=== PATIENT | male | born 1950 | race Caucasian/White ===

== ENCOUNTER 2017-09-30 16:48 | Inpatient (IN) | payer MEDICARE, OTHER ==
[2017-09-30] MEDS: ONDANSETRON 4 MG INJ IV (21:21)
[2017-09-30] MEDS: SOD CHLORIDE 0.9% 1,000 ML IV ×3 (21:22→23:24)
[2017-09-30] MEDS: ALTEPLASE (CATHFLO) 2 MG INJ CATHETER ×2 (21:48)
[2017-09-30 21:53] LABS: ADD MAN DIFF? NO
[2017-09-30 21:59] LABS: BASOPHILS % 0.3 % (0.0-2.0); EOSINOPHILS % 0.5 % (0.0-7.0); HEMATOCRIT 30.7 % (42.0-52.0); HEMOGLOBIN 10.4 g/dl (14.0-18.0); LYMPHOCYTES # 1.6 10^3/ul (0.8-2.9); LYMPHOCYTES % 21.2 % (15.0-51.0); MEAN CORPUSCULAR HEMOGLOBIN 32.1 pg (29.0-33.0); MEAN CORPUSCULAR HGB CONC 33.9 g/dl (32.0-37.0); MEAN CORPUSCULAR VOLUME 94.8 fl (82.0-101.0); MEAN PLATELET VOLUME 10.6 fl (7.4-10.4); MONOCYTE # 0.5 10^3/ul (0.3-0.9); MONOCYTES % 6.9 % (0.0-11.0); NEUTROPHIL # 5.2 10^3/ul (1.6-7.5); NEUTROPHILS % 70.2 % (39.0-77.0); PLATELET COUNT 411 10^3/UL (140-415); RED BLOOD COUNT 3.24 10^6/ul (4.70-6.10); RED CELL DISTRIBUTION WIDTH 13.1 % (11.5-14.5)
[2017-09-30 21:59] LABS: WHITE BLOOD COUNT 7.4 10^3/ul (4.8-10.8)
[2017-09-30 22:05] LABS: ADD UMIC YES; UR ASCORBIC ACID NEGATIVE (NEGATIVE); UR BILIRUBIN (Dip) NEGATIVE (NEGATIVE); UR BLOOD (Dip) 1+ mg/dL (NEGATIVE); UR CLARITY CLEAR (CLEAR); UR COLOR STRAW (YELLOW); UR GLUCOSE (Dip) 3+ mg/dL (NEGATIVE); UR KETONES (Dip) NEGATIVE (NEGATIVE); UR LEUKOCYTE ESTERASE (Dip) NEGATIVE Leu/ul (NEGATIVE); UR NITRITE (Dip) NEGATIVE (NEGATIVE); UR RBC 0 /HPF (0-5); UR SPECIFIC GRAVITY (Dip) 1.013 (1.003-1.030); UR TOTAL PROTEIN (Dip) 2+ mg/dl (NEGATIVE); UR UROBILINOGEN (Dip) NEGATIVE (NEGATIVE); UR WBC 1 /HPF (0-5)
[2017-09-30 23:13] LABS: INR 1.07; PT RATIO 1.1
[2017-09-30 23:14] LABS: PARTIAL THROMBOPLASTIN TIME 27.5 Sec (25.0-35.0)
[2017-09-30 23:26] LABS: LACTIC ACID 1.2 mmol/L (0.5-2.0)
[2017-10-01 00:06] LABS: ALANINE AMINOTRANSFERASE 27 IU/L (13-69); ALBUMIN 3.5 g/dl (3.3-4.9); ALBUMIN/GLOBULIN RATIO 1.16; ALKALINE PHOSPHATASE 113 IU/L (42-121); ANION GAP 17 (8-16); ASPARTATE AMINO TRANSFERASE 15 IU/L (15-46); BLOOD UREA NITROGEN 79 mg/dl (7-20); CALCIUM 8.2 mg/dl (8.4-10.2); CARBON DIOXIDE 20 mmol/L (21-31); CHLORIDE 93 mmol/L (97-110); CREATININE 7.89 mg/dl (0.61-1.24); LIPASE 283 U/L (23-300); POTASSIUM 4.9 mmol/L (3.5-5.1); SODIUM 125 mmol/L (135-144); TOTAL PROTEIN 6.5 g/dl (6.1-8.1)
[2017-10-01 00:17] LABS: GLUCOSE 707 mg/dl (70-220)
[2017-10-01 00:18] LABS: TROPONIN-I 0.017 ng/ml (0.00-0.12)
[2017-10-01] MEDS ORDERED: DEXTROSE 50% 50 ML IV (01:00)
[2017-10-01] MEDS ORDERED: DEXTROSE 50% 25 ML IV (01:00)
[2017-10-01] MEDS ORDERED: ADJUSTMENT OF INSULIN INFUSION RATE (DKA PROTOCOL) XX (01:00)
[2017-10-01] MEDS: INSULIN HUMAN REGULAR 100 UNIT in SOD CHLORIDE 0.9% 99 ML IV (01:27)
[2017-10-01 01:35] LABS: AADO2 Arterial 27.4 mmHg (7.0-24.0); Allen Test ACCEPTAB; Arterial Base Excess -6.9 mmol/L (-3.0-3); Arterial Blood Gas Oxygen Sat 92.3 mmHG (95.0-98.0); Arterial COHb 0.3 % (0.0-3.0); Arterial Fraction of Oxyhgb 91.9 % (93.0-99.0); Arterial HCO3 19.1 mmol/L (22.0-26.0); Arterial MetHb 0.1 % (0.0-1.5); Arterial Total Hemglobin 10.2 g/dl (12.0-18.0); Arterial pCO2 40.6 mmhg (35-45); MODE ROOM AIR; Site Right Radial
[2017-10-01 02:46] LABS: ANION GAP 17 (8-16); BLOOD UREA NITROGEN 72 mg/dl (7-20); CALCIUM 7.7 mg/dl (8.4-10.2); CARBON DIOXIDE 19 mmol/L (21-31); CHLORIDE 100 mmol/L (97-110); CREATININE 7.19 mg/dl (0.61-1.24); POTASSIUM 3.6 mmol/L (3.5-5.1); SODIUM 132 mmol/L (135-144)
[2017-10-01 02:49] LABS: GLUCOSE 549 mg/dl (70-220)
[2017-10-01] MEDS ORDERED: ONDANSETRON 4 MG INJ IV (03:30)
[2017-10-01] MEDS ORDERED: DOCUSATE SODIUM 100 MG CAP PO (03:30)
[2017-10-01] MEDS ORDERED: BISACODYL (EC) 5 MG TAB PO (03:30)
[2017-10-01] MEDS ORDERED: NITROGLYCERIN (SL) 0.4 MG TAB SL (03:30)
[2017-10-01] MEDS ORDERED: ALBUTEROL HFA 8 GM INHALER INH (04:00)
[2017-10-01] MEDS: DEXTROSE 5% 1,000 ML IV (04:31)
[2017-10-01] MEDS: ALBUTEROL/IPRATROPIUM (NEB) 3 ML AMP NEB ×5 (04:43→21:50)
[2017-10-01] MEDS ORDERED: IPRATROPIUM (NEB) 0.5 MG/2.5 ML AMP NEB (05:00)
[2017-10-01] MEDS ORDERED: GLUCAGON 1 MG INJ IM (05:30)
[2017-10-01] MEDS ORDERED: DEXTROSE 50% 50 ML SYRINGE IV ×2 (05:30)
[2017-10-01] MEDS ORDERED: GLUCOSE GEL 15 GRAM TUBE BUCCAL (05:30)
[2017-10-01] MEDS ORDERED: GLUCOSE GEL 15 GRAM TUBE PO ×2 (05:30)
[2017-10-01] MEDS: PANTOPRAZOLE 40 MG INJ IV (05:30)
[2017-10-01] MEDS: INSULIN ASPART [NOVOLOG] 3 ML PEN SC ×3 (07:48→17:33)
[2017-10-01] MEDS: INSULIN GLARGINE [LANtus] 3 ML PEN SC ×2 (07:48→20:34)
[2017-10-01] MEDS: ACETAMINOPHEN 500 MG TAB PO ×3 (08:41→20:37)
[2017-10-01] MEDS: METOPROLOL 100 MG TAB PO (08:41)
[2017-10-01] MEDS: FERROUS SULFATE (EC) 325 MG TAB PO (08:42)
[2017-10-01] MEDS: FOLIC ACID 1 MG TAB PO (08:42)
[2017-10-01 08:53] LABS: HEMOGLOBIN A1C 12.6 % (0-5.9)
[2017-10-01 08:58] LABS: ANION GAP 19 (8-16); BLOOD UREA NITROGEN 71 mg/dl (7-20); CALCIUM 8.5 mg/dl (8.4-10.2); CARBON DIOXIDE 19 mmol/L (21-31); CHLORIDE 103 mmol/L (97-110); CREATININE 7.42 mg/dl (0.61-1.24); GLUCOSE 171 mg/dl (70-220); POTASSIUM 3.5 mmol/L (3.5-5.1); SODIUM 137 mmol/L (135-144)
[2017-10-01] MEDS ORDERED: METOPROLOL 100 MG TAB PO (13:30)
[2017-10-01] MEDS: AMLODIPINE 5 MG TAB PO (13:46)
[2017-10-01] MEDS: ACETAMINOPHEN 325 MG TAB PO (13:50)
[2017-10-01] MEDS: Insulin NOVOLOG SS MILD Algorithm (SS with meals and bedtime) SC ×2 (17:32→22:23)
[2017-10-01] MEDS ORDERED: SOD CHLORIDE 0.9% 1,000 ML IV (17:56)
[2017-10-01] MEDS ORDERED: SODIUM CHLORIDE 0.9% 1L BAG IV (18:00)
[2017-10-01] MEDS ORDERED: ALBUMIN HUMAN 25% 50 ML IV (18:00)
[2017-10-01] MEDS: AMLODIPINE 10 MG TAB PO (19:41)
[2017-10-01] MEDS ORDERED: INSULIN GLARGINE [LANtus] 3 ML PEN SC (20:00)
[2017-10-01] MEDS: BENZONATATE 100 MG CAP PO (22:07)
[2017-10-02] MEDS: ALBUTEROL/IPRATROPIUM (NEB) 3 ML AMP NEB ×7 (00:19→23:57)
[2017-10-02] MEDS ORDERED: ACCU-CHEK XX ×3 (02:00)
[2017-10-02] MEDS: ACCU-CHEK XX (02:58)
[2017-10-02] MEDS: PANTOPRAZOLE 40 MG INJ IV (06:15)
[2017-10-02] MEDS: BENZONATATE 100 MG CAP PO ×2 (06:15→21:10)
[2017-10-02 07:22] LABS: ADD MAN DIFF? NO; HAAIG REFLEX REFLEX FILED
[2017-10-02 07:24] LABS: WHITE BLOOD COUNT 8.5 10^3/ul (4.8-10.8)
[2017-10-02 07:24] LABS: BASOPHILS % 0.4 % (0.0-2.0); EOSINOPHILS # 0.2 10^3/ul (0.0-0.5); EOSINOPHILS % 2.2 % (0.0-7.0); HEMATOCRIT 28.1 % (42.0-52.0); HEMOGLOBIN 9.6 g/dl (14.0-18.0); LYMPHOCYTES # 1.9 10^3/ul (0.8-2.9); LYMPHOCYTES % 22.7 % (15.0-51.0); MEAN CORPUSCULAR HEMOGLOBIN 32.9 pg (29.0-33.0); MEAN CORPUSCULAR HGB CONC 34.2 g/dl (32.0-37.0); MEAN CORPUSCULAR VOLUME 96.2 fl (82.0-101.0); MEAN PLATELET VOLUME 9.9 fl (7.4-10.4); MONOCYTE # 0.5 10^3/ul (0.3-0.9); MONOCYTES % 6.3 % (0.0-11.0); NEUTROPHIL # 5.7 10^3/ul (1.6-7.5); NEUTROPHILS % 67.3 % (39.0-77.0); PLATELET COUNT 380 10^3/UL (140-415); RED BLOOD COUNT 2.92 10^6/ul (4.70-6.10); RED CELL DISTRIBUTION WIDTH 12.8 % (11.5-14.5)
[2017-10-02] MEDS: FERROUS SULFATE (EC) 325 MG TAB PO (08:15)
[2017-10-02] MEDS: ACETAMINOPHEN 500 MG TAB PO ×3 (08:15→21:10)
[2017-10-02] MEDS: FOLIC ACID 1 MG TAB PO (08:16)
[2017-10-02] MEDS: INSULIN ASPART [NOVOLOG] 3 ML PEN SC ×3 (08:22→17:12)
[2017-10-02] MEDS: Insulin NOVOLOG SS MILD Algorithm (SS with meals and bedtime) SC ×4 (08:22→22:02)
[2017-10-02] MEDS: AMLODIPINE 10 MG TAB PO (08:22)
[2017-10-02] MEDS: METOPROLOL 100 MG TAB PO (08:22)
[2017-10-02 08:34] LABS: HEPATITIS B SURFACE ANTIGEN NEGATIVE (NEGATIVE)
[2017-10-02 08:53] LABS: HEPATITIS B CORE ANTIBODY NEGATIVE (NEGATIVE); HEPATITIS C VIRAL ANTIBODY NEGATIVE (NEGATIVE)
[2017-10-02 10:59] LABS: ANION GAP 19 (8-16); BLOOD UREA NITROGEN 72 mg/dl (7-20); CALCIUM 8.6 mg/dl (8.4-10.2); CARBON DIOXIDE 19 mmol/L (21-31); CHLORIDE 101 mmol/L (97-110); CREATININE 6.63 mg/dl (0.61-1.24); GLUCOSE 199 mg/dl (70-220); SODIUM 135 mmol/L (135-144)
[2017-10-02] MEDS ORDERED: LORAZEPAM 2 MG INJ IV (12:47)
[2017-10-02] MEDS: INSULIN GLARGINE [LANtus] 3 ML PEN SC (21:16)
[2017-10-03] MEDS: ACCU-CHEK XX (01:51)
[2017-10-03] MEDS: HEPARIN 1000 UNITS/ML 10 ML INJ CATHETER (03:05)
[2017-10-03] MEDS: ALBUTEROL/IPRATROPIUM (NEB) 3 ML AMP NEB ×5 (04:13→21:44)
[2017-10-03 06:27] LABS: ADD MAN DIFF? NO
[2017-10-03 06:34] LABS: BASOPHILS % 0.3 % (0.0-2.0); EOSINOPHILS # 0.2 10^3/ul (0.0-0.5); EOSINOPHILS % 2.9 % (0.0-7.0); HEMATOCRIT 29.4 % (42.0-52.0); HEMOGLOBIN 9.9 g/dl (14.0-18.0); LYMPHOCYTES # 1.9 10^3/ul (0.8-2.9); LYMPHOCYTES % 25.6 % (15.0-51.0); MEAN CORPUSCULAR HEMOGLOBIN 32.4 pg (29.0-33.0); MEAN CORPUSCULAR HGB CONC 33.7 g/dl (32.0-37.0); MEAN CORPUSCULAR VOLUME 96.1 fl (82.0-101.0); MONOCYTE # 0.5 10^3/ul (0.3-0.9); MONOCYTES % 6.8 % (0.0-11.0); NEUTROPHIL # 4.7 10^3/ul (1.6-7.5); NEUTROPHILS % 63.7 % (39.0-77.0); PLATELET COUNT 347 10^3/UL (140-415); RED BLOOD COUNT 3.06 10^6/ul (4.70-6.10); RED CELL DISTRIBUTION WIDTH 12.9 % (11.5-14.5)
[2017-10-03 06:34] LABS: WHITE BLOOD COUNT 7.3 10^3/ul (4.8-10.8)
[2017-10-03 06:44] LABS: ANION GAP 18 (8-16); BLOOD UREA NITROGEN 46 mg/dl (7-20); CALCIUM 8.5 mg/dl (8.4-10.2); CARBON DIOXIDE 28 mmol/L (21-31); CHLORIDE 98 mmol/L (97-110); CREATININE 4.96 mg/dl (0.61-1.24); GLUCOSE 195 mg/dl (70-220); POTASSIUM 3.4 mmol/L (3.5-5.1); SODIUM 141 mmol/L (135-144)
[2017-10-03] MEDS: PANTOPRAZOLE (EC) 40 MG TAB PO (06:45)
[2017-10-03] MEDS: BENZONATATE 100 MG CAP PO ×2 (06:45→08:28)
[2017-10-03] MEDS: FOLIC ACID 1 MG TAB PO (08:26)
[2017-10-03] MEDS: FERROUS SULFATE (EC) 325 MG TAB PO (08:27)
[2017-10-03] MEDS: ACETAMINOPHEN 500 MG TAB PO ×3 (08:27→20:51)
[2017-10-03] MEDS: METOPROLOL 100 MG TAB PO (08:29)
[2017-10-03] MEDS: AMLODIPINE 10 MG TAB PO (08:29)
[2017-10-03] MEDS: INSULIN ASPART [NOVOLOG] 3 ML PEN SC ×3 (08:30→17:22)
[2017-10-03] MEDS: Insulin NOVOLOG SS MILD Algorithm (SS with meals and bedtime) SC ×4 (08:35→20:52)
[2017-10-03] MEDS: POTASSIUM CHLORIDE (SR) 20 MEQ TAB PO (16:13)
[2017-10-03] MEDS: INSULIN GLARGINE [LANtus] 3 ML PEN SC (20:52)
[2017-10-04] MEDS: ALBUTEROL/IPRATROPIUM (NEB) 3 ML AMP NEB ×6 (01:14→20:59)
[2017-10-04] MEDS: ACCU-CHEK XX (01:16)
[2017-10-04] MEDS: PANTOPRAZOLE (EC) 40 MG TAB PO (05:18)
[2017-10-04 06:06] LABS: ANION GAP 15 (8-16); BLOOD UREA NITROGEN 60 mg/dl (7-20); CARBON DIOXIDE 23 mmol/L (21-31); CHLORIDE 101 mmol/L (97-110); GLUCOSE 96 mg/dl (70-220); POTASSIUM 3.7 mmol/L (3.5-5.1); SODIUM 135 mmol/L (135-144)
[2017-10-04] MEDS: Insulin NOVOLOG SS MILD Algorithm (SS with meals and bedtime) SC ×4 (08:54→21:00)
[2017-10-04] MEDS: FERROUS SULFATE (EC) 325 MG TAB PO (08:55)
[2017-10-04] MEDS: FOLIC ACID 1 MG TAB PO (08:55)
[2017-10-04] MEDS: ACETAMINOPHEN 500 MG TAB PO ×3 (08:56→20:45)
[2017-10-04] MEDS: INSULIN ASPART [NOVOLOG] 3 ML PEN SC ×4 (08:59→18:49)
[2017-10-04] MEDS: METOPROLOL 100 MG TAB PO (12:39)
[2017-10-04] MEDS: AMLODIPINE 10 MG TAB PO (12:40)
[2017-10-04] MEDS ORDERED: ALTEPLASE (CATHFLO) 2 MG INJ CATHETER (14:00)
[2017-10-04] MEDS: ALTEPLASE (CATHFLO) 2 MG INJ CATHETER (18:13)
[2017-10-04] MEDS: INSULIN GLARGINE [LANtus] 3 ML PEN SC (20:47)
[2017-10-04] MEDS: HEPARIN 1000 UNITS/ML 10 ML INJ CATHETER (23:13)
[2017-10-05] MEDS: ALBUTEROL/IPRATROPIUM (NEB) 3 ML AMP NEB ×6 (00:38→20:48)
[2017-10-05] MEDS: ACETAMINOPHEN 325 MG TAB PO ×2 (00:38→20:00)
[2017-10-05] MEDS: ACCU-CHEK XX (02:00)
[2017-10-05 05:26] LABS: ADD MAN DIFF? NO
[2017-10-05 05:33] LABS: BASOPHILS % 0.3 % (0.0-2.0); EOSINOPHILS # 0.3 10^3/ul (0.0-0.5); EOSINOPHILS % 3.9 % (0.0-7.0); HEMATOCRIT 30.1 % (42.0-52.0); HEMOGLOBIN 9.8 g/dl (14.0-18.0); LYMPHOCYTES # 2.1 10^3/ul (0.8-2.9); MEAN CORPUSCULAR HEMOGLOBIN 31.7 pg (29.0-33.0); MEAN CORPUSCULAR HGB CONC 32.6 g/dl (32.0-37.0); MEAN CORPUSCULAR VOLUME 97.4 fl (82.0-101.0); MEAN PLATELET VOLUME 9.7 fl (7.4-10.4); MONOCYTE # 0.6 10^3/ul (0.3-0.9); MONOCYTES % 7.4 % (0.0-11.0); NEUTROPHIL # 4.9 10^3/ul (1.6-7.5); NEUTROPHILS % 61.9 % (39.0-77.0); PLATELET COUNT 366 10^3/UL (140-415); RED BLOOD COUNT 3.09 10^6/ul (4.70-6.10); RED CELL DISTRIBUTION WIDTH 13.1 % (11.5-14.5)
[2017-10-05 05:33] LABS: WHITE BLOOD COUNT 7.9 10^3/ul (4.8-10.8)
[2017-10-05 05:52] LABS: ANION GAP 13 (8-16); BLOOD UREA NITROGEN 50 mg/dl (7-20); CARBON DIOXIDE 26 mmol/L (21-31); CHLORIDE 102 mmol/L (97-110); CREATININE 5.51 mg/dl (0.61-1.24); GLUCOSE 113 mg/dl (70-220); POTASSIUM 4.2 mmol/L (3.5-5.1); SODIUM 137 mmol/L (135-144)
[2017-10-05] MEDS: PANTOPRAZOLE (EC) 40 MG TAB PO (06:00)
[2017-10-05] MEDS ORDERED: CEFAZOLIN 1 GM INJ (07:00)
[2017-10-05] MEDS: Insulin NOVOLOG SS MILD Algorithm (SS with meals and bedtime) SC ×4 (07:20→20:23)
[2017-10-05] MEDS: INSULIN ASPART [NOVOLOG] 3 ML PEN SC ×3 (07:50→17:55)
[2017-10-05] MEDS: FERROUS SULFATE (EC) 325 MG TAB PO (08:20)
[2017-10-05] MEDS: METOPROLOL 100 MG TAB PO (08:21)
[2017-10-05] MEDS: FOLIC ACID 1 MG TAB PO (08:21)
[2017-10-05] MEDS: AMLODIPINE 10 MG TAB PO (08:21)
[2017-10-05] MEDS: ACETAMINOPHEN 500 MG TAB PO ×3 (08:28→20:23)
[2017-10-05] MEDS ORDERED: SOD CHLORIDE 0.9% 1,000 ML IV (16:25)
[2017-10-05] MEDS ORDERED: SODIUM CHLORIDE 0.9% 1L BAG IV (16:30)
[2017-10-05] MEDS ORDERED: ALBUMIN HUMAN 25% 50 ML IV (16:30)
[2017-10-05] MEDS ORDERED: BUPIVACAINE 0.25% (MPF) 30 ML INJ (16:57)
[2017-10-05] MEDS ORDERED: POLYMYXIN/BACITRACIN 1L IRRIG (16:58)
[2017-10-05] MEDS ORDERED: PROPOFOL 20 ML (17:51)
[2017-10-05] MEDS ORDERED: ONDANSETRON 4 MG INJ (17:53)
[2017-10-05] MEDS: LIDOCAINE 1% (MPF) 30 ML INJ (18:33)
[2017-10-05] MEDS: HEPARIN 1000 UNITS/ML 10 ML INJ (18:33)
[2017-10-05] MEDS: THROMBIN 5000 UNIT VIAL (18:33)
[2017-10-05] MEDS: GELATIN SIZE 100 SPONGE (18:33)
[2017-10-05] MEDS: IOHEXOL 300MG/ML 30 ML BTL (18:50)
[2017-10-05] MEDS ORDERED: HEPARIN 1000 UNITS/ML 10 ML INJ (18:54)
[2017-10-05] MEDS: INSULIN GLARGINE [LANtus] 3 ML PEN SC (20:23)
[2017-10-06] MEDS: ACETAMINOPHEN 650MG/20.3ML CUP PO (00:48)
[2017-10-06] MEDS: ALBUTEROL/IPRATROPIUM (NEB) 3 ML AMP NEB ×8 (01:46→20:45)
[2017-10-06] MEDS: ACCU-CHEK XX (01:46)
[2017-10-06 05:51] LABS: ADD MAN DIFF? NO
[2017-10-06] MEDS: PANTOPRAZOLE (EC) 40 MG TAB PO (05:54)
[2017-10-06 06:02] LABS: BASOPHILS % 0.2 % (0.0-2.0); EOSINOPHILS # 0.3 10^3/ul (0.0-0.5); EOSINOPHILS % 3.5 % (0.0-7.0); HEMATOCRIT 28.7 % (42.0-52.0); HEMOGLOBIN 9.2 g/dl (14.0-18.0); LYMPHOCYTES % 23.9 % (15.0-51.0); MEAN CORPUSCULAR HEMOGLOBIN 31.8 pg (29.0-33.0); MEAN CORPUSCULAR HGB CONC 32.1 g/dl (32.0-37.0); MEAN CORPUSCULAR VOLUME 99.3 fl (82.0-101.0); MEAN PLATELET VOLUME 9.8 fl (7.4-10.4); MONOCYTE # 0.5 10^3/ul (0.3-0.9); MONOCYTES % 6.5 % (0.0-11.0); NEUTROPHIL # 5.4 10^3/ul (1.6-7.5); NEUTROPHILS % 65.4 % (39.0-77.0); PLATELET COUNT 361 10^3/UL (140-415); RED BLOOD COUNT 2.89 10^6/ul (4.70-6.10); RED CELL DISTRIBUTION WIDTH 13.1 % (11.5-14.5)
[2017-10-06 06:02] LABS: WHITE BLOOD COUNT 8.3 10^3/ul (4.8-10.8)
[2017-10-06 06:44] LABS: ANION GAP 16 (8-16); BLOOD UREA NITROGEN 57 mg/dl (7-20); CALCIUM 8.5 mg/dl (8.4-10.2); CARBON DIOXIDE 22 mmol/L (21-31); CHLORIDE 104 mmol/L (97-110); GLUCOSE 166 mg/dl (70-220); POTASSIUM 3.7 mmol/L (3.5-5.1); SODIUM 138 mmol/L (135-144)
[2017-10-06] MEDS: Insulin NOVOLOG SS MILD Algorithm (SS with meals and bedtime) SC ×4 (08:41→20:44)
[2017-10-06] MEDS: INSULIN ASPART [NOVOLOG] 3 ML PEN SC ×3 (08:41→17:45)
[2017-10-06] MEDS: FOLIC ACID 1 MG TAB PO (08:42)
[2017-10-06] MEDS: ACETAMINOPHEN 500 MG TAB PO ×3 (08:43→20:33)
[2017-10-06] MEDS: METOPROLOL 100 MG TAB PO (08:43)
[2017-10-06] MEDS: AMLODIPINE 10 MG TAB PO (08:43)
[2017-10-06] MEDS: FERROUS SULFATE (EC) 325 MG TAB PO (08:44)
[2017-10-06] MEDS: HEPARIN 1000 UNITS/ML 10 ML INJ CATHETER (13:12)
[2017-10-06] MEDS ORDERED: SODIUM CHLORIDE 0.9% 1L BAG IV (20:00)
[2017-10-06] MEDS ORDERED: ALBUMIN HUMAN 25% 50 ML IV (20:00)
[2017-10-06] MEDS: INSULIN GLARGINE [LANtus] 3 ML PEN SC (20:36)
[2017-10-07] MEDS: ALBUTEROL/IPRATROPIUM (NEB) 3 ML AMP NEB ×5 (01:00→17:36)
[2017-10-07] MEDS: ACCU-CHEK XX (02:00)
[2017-10-07] MEDS: PANTOPRAZOLE (EC) 40 MG TAB PO (05:14)
[2017-10-07] MEDS: FERROUS SULFATE (EC) 325 MG TAB PO (10:04)
[2017-10-07] MEDS: ACETAMINOPHEN 500 MG TAB PO ×2 (10:04→12:30)
[2017-10-07] MEDS: AMLODIPINE 10 MG TAB PO (10:05)
[2017-10-07] MEDS: FOLIC ACID 1 MG TAB PO (10:05)
[2017-10-07] MEDS: Insulin NOVOLOG SS MILD Algorithm (SS with meals and bedtime) SC ×3 (10:06→17:25)
[2017-10-07] MEDS: METOPROLOL 100 MG TAB PO (10:06)
[2017-10-07] MEDS: INSULIN ASPART [NOVOLOG] 3 ML PEN SC ×3 (10:17→17:51)
== END 2017-10-07 19:53 | disposition home health service (06) | DRG 252 ==
LOC: TEL 10-01 03:58 → MS1 10-03 21:04 → E/R 16:48
PROVIDERS: Internal Medicine Nephrology
PROC: 05CC0ZZ Extirpation of Matter from Left Basilic Vein, Open Approach (ICD-10-PCS; principal; 2017-10-05 16:00)
PROC: 057C0ZZ Dilation of Left Basilic Vein, Open Approach (ICD-10-PCS; 2017-10-05 16:00)
PROC: 06HY33Z Insertion of Infusion Device into Lower Vein, Percutaneous Approach (ICD-10-PCS; 2017-10-05 18:06)
PROC: 5A1D70Z Performance of Urinary Filtration, Intermittent, Less than 6 Hours Per Day (ICD-10-PCS; 2017-10-05 18:06)
DX: T82.868A Thrombosis due to vascular prosthetic devices, implants and grafts, initial encounter (principal); N18.6 End stage renal disease; I12.0 Hypertensive chronic kidney disease with stage 5 chronic kidney disease or end stage renal disease; E11.22 Type 2 diabetes mellitus with diabetic chronic kidney disease; E11.65 Type 2 diabetes mellitus with hyperglycemia; Z99.2 Dependence on renal dialysis; N40.1 Benign prostatic hyperplasia with lower urinary tract symptoms; R33.8 Other retention of urine; E87.5 Hyperkalemia
CPT/HCPCS: 36415; 36600; 71045; 73060; 80048; 80053; 81001; 82803; 82962; 83036; 83605; 83690; 83735; 84100; 84484; 85025; 85610; 85730; 86704; 86709; 86803; 87340; 90935; 93005; 93931; 93971; 94640; 94664; 96372; 96374; 96375; 99291-25